=== PATIENT | male | born 1975 ===

== ENCOUNTER 2017-07-13 19:08 | Emergency (ER) | payer OTHER ==
[2017-07-13 19:26] VITALS: RESP 18; O2SAT 98
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
[2017-07-13 21:43] VITALS: BP 154/95; PULSE 93; TEMP 97.8
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
== END 2017-07-13 21:42 | disposition home or self-care (01) ==
LOC: C.ER 19:08 → SUPCPDRO 19:08 → C.ER 21:42
DX: S16.1XXA Strain of muscle, fascia and tendon at neck level, initial encounter (principal); S33.5XXA Sprain of ligaments of lumbar spine, initial encounter; V49.50XA Passenger injured in collision with unspecified motor vehicles in traffic accident, initial encounter